=== PATIENT | male | born 1980 | race Caucasian/White ===

== ENCOUNTER 2019-04-22 14:31 | Outpatient (CLI) | payer OTHER ==
[~2019-04-22] VITALS: Ht 185.4 cm; Wt 90.3 kg
[2019-04-22] MEDS ORDERED: KLONOPIN1 MG ORAL (15:20)
[2019-04-22] MEDS ORDERED: ZYRTEC10 MG ORAL (15:20)
[2019-04-22] MEDS ORDERED: DESCOVY 200/25 PO (15:20)
[2019-04-22] MEDS ORDERED: ADDERAL20 MG ORAL (15:20)
[2019-04-22] MEDS ORDERED: IMITREX50 MG ORAL (15:20)
[2019-04-22 15:21] VITALS: BP 124/66
--- NOTE | 2019-04-23 17:00 | Consultation ---
DATE OF CONSULTATION: 04/22/2019 CONSULTING PHYSICIAN: Kenny Rivera M.D. CHIEF COMPLAINT: Abdominal pain, bloating, gas, distention. HISTORY OF PRESENT ILLNESS: This is a 38-year-old male who apparently been dealing with his abdominal symptoms for many many years. He has been on a FODMAP diet. He is followed by GI. Apparently at one point, he had an endoscopy done. The patient was offered to have a , but he could not afford it. He had had gluten-free diet also, lactose-free diet also, and he is still having abdominal pain and bloating. PAST MEDICAL HISTORY: 1. Depression. 2. ADHD. 3. Esophagitis. 4. Prostatic inflammation, chronic. PAST SURGICAL HISTORY: 1. Tonsillectomy. 2. Sinus surgery. MEDICATIONS: Please see medication reconciliation list. FAMILY HISTORY: No family history of GI malignancies. SOCIAL HISTORY: The patient drinks socially, but denies any tobacco or IV drug abuse. ALLERGIES: To grass. REVIEW OF SYSTEMS: Positive for abdominal pain, bloating. PHYSICAL EXAMINATION: VITAL SIGNS: Temperature 97.8, blood pressure 124/66, pulse 70, respirations 20. HEENT: Normocephalic, atraumatic. Sclerae anicteric. NECK: Supple. No evidence of obvious lymphadenopathy. CARDIOVASCULAR: Regular rate and rhythm. Plus S1 and S2. LUNGS: Clear to auscultation bilaterally. ABDOMEN: Positive bowel sounds. Soft, nontender. No rebound. No guarding. No peritoneal sign. EXTREMITIES: No cyanosis. No clubbing. No edema. ASSESSMENT AND PLAN: This is a 38-year-old male with signs and symptoms highly suspicious for SIBO. The patient was given prescription was Xifaxan if the insurance can cover it or he can afford it. Otherwise, the second option would be Augmentin. He was given also a prescription for 875 mg of Augmentin twice a day for 10 days. The patient was recommended to start on VSL#3 or Align post antibiotic treatment. Come back to the office if there is no improvement in his symptoms. Carlin ThorneD. DR: JOSE A JOB#: [id number] CC:
== END 2019-04-22 16:26 | disposition home or self-care (01) ==
LOC: PAN 14:31
DX: R10.9 Unspecified abdominal pain (principal); R14.0 Abdominal distension (gaseous); F32.9 Major depressive disorder, single episode, unspecified
CPT/HCPCS: G0463

== ENCOUNTER 2019-07-09 11:36 | Outpatient (CLI) | payer OTHER ==
[~2019-07-09 11:36] MED LIST: ADDERAL20 MG ORAL; DESCOVY 200/25 PO; IMITREX50 MG ORAL; KLONOPIN1 MG ORAL; ZYRTEC10 MG ORAL
--- NOTE | 2019-07-09 12:08 | General Progress Note ---
Assessment/Plan Assessment/Plan: SIBO Constipation s/p Randall Xifaxan some improvement on Align x 3 weeks repeat Xifaxan add [employer] Subjective ROS Limited/Unobtainable: Yes Allergies: Coded Allergies: Cat Dander (Verified Allergy, Unknown, 04/22/19) Dog Dander (Verified Allergy, Unknown, 04/22/19) GRASS POLLEN (Verified Allergy, Unknown, 04/22/19) TREE AND SHRUB POLLEN (Verified Allergy, Unknown, 04/22/19) Objective General Appearance: alert EENT: normal ENT inspection Neck: supple Cardiovascular: normal rate Respiratory/Chest: decreased breath sounds Abdomen: normal bowel sounds, non tender, soft Extremities: non-tender Kenny Rivera MD July 09, 2019 12:08
[2019-07-09] MEDS ORDERED: ALIGN4 M1 PO (15:03)
[2019-07-09 15:15] VITALS: BP 127/74
== END 2019-07-09 13:36 | disposition home or self-care (01) ==
LOC: PAN 11:36
DX: K56.609 Unspecified intestinal obstruction, unspecified as to partial versus complete obstruction (principal); K59.00 Constipation, unspecified; Z91.09 Other allergy status, other than to drugs and biological substances
CPT/HCPCS: 99212